=== PATIENT | male | born 1985 | race American Indian/Alaskan Native ===

== ENCOUNTER 2016-06-19 09:43 | Inpatient (IN) | payer OTHER ==
[2016-06-19 09:56] LABS: Basophils % (Auto) 0.6 % (0.0-1.8); Eosinophils % (Auto) 2.8 % (0.0-4.3); Hematocrit 42.4 % (35.5-45.6); Hemoglobin 14.2 gm/dl (11.8-15.2); Mean Corpuscular HGB Conc 33 % (32-34); Mean Corpuscular Hemoglobin 30 pg (28-32); Mean Corpuscular Volume 89 fl (84-94); Platelet Count 201 K/mm3 (140-440); Red Blood Count 4.77 M/mm3 (3.65-5.03); Red Cell Distribution Width 14.3 % (13.2-15.2); White Blood Count 7.8 K/mm3 (4.5-11.0)
--- NOTE | 2016-06-19 10:00 | Cat Scan Report ---
CT HEAD WITHOUT CONTRAST: HISTORY: CVA. Serial contiguous axial images were obtained through the cranium. Intravenous contrast material was not administered. The ventricles are normal in size and appearance. There is no mass effect or midline shift. No areas of abnormally increased or decreased attenuation are seen. No mass lesion is seen. The mastoid air cells and visualized portions of the sinuses are normal. IMPRESSION: Cranial CT scan within normal limits. These findings were discussed with Dr. Morales in the emergency department at 0955 hours.
[2016-06-19] MEDS ORDERED: ACTIVASE ONE ×2 (10:03→17:23)
[2016-06-19 10:07] LABS: Anion Gap 20 mmol/L; Blood Urea Nitrogen 12 mg/dL (9-20); Calcium 8.7 mg/dL (8.4-10.2); Carbon Dioxide 22 mmol/L (22-30); Chloride 103.6 mmol/L (98-107); Glucose 120 mg/dL (75-100); INR 0.95 (0.87-1.13); Potassium 3.8 mmol/L (3.6-5.0); Sodium 142 mmol/L (137-145)
[2016-06-19] MEDS ORDERED: BABY ASPIRIN PO ONE (10:17)
[2016-06-19] MEDS ORDERED: NORMODYNE IV ONE (10:27)
[2016-06-19 10:28] LABS: Magnesium 2.1 mg/dL (1.7-2.3)
--- NOTE | 2016-06-19 10:29 | Admit Criteria Form ---
Admission Criteria Documentation: TRANSIENT ISCHEMIC ATTACK (TIA) Clinical Indications for Admission to Inpatient Care (Place 'X' for any and all applicable criteria): Admission is indicated for ANY ONE of the following(1)(2)(3)(4)(5): [ ]I. Immediate inpatient procedure is needed (eg, endarterectomy). [X ]II. Inpatient admission required rather than observation care (Also use Transient Ischemic Attack (TIA): Observation Care Criteria as appropriate) because of ANY ONE of the following: [ ]a) Focal neurologic signs or symptoms persist or recurring [ ]b) Cardiac arrhythmias of immediate concern [ ]c) Clinically significant cardiac disorder identified that requires inpatient care (eg, severe valvular disease, atrial myxoma, cardiomyopathy) [X ]d) Hypertension requiring inpatient treatment [ ]e) Parenteral anticoagulation required (eg, alternative forms of anticoagulation not appropriate or not feasible) as indicated by ALL of the following(13): [ ]i) Temporary subtherapeutic anticoagulation unacceptable because of high risk of short-term venous or arterial thromboembolism due to ANY ONE of the following(14)(15)(16): [ ]1) Atrial fibrillation suspected as etiology of TIA(17)(18)(19)(20)(21) [ ]2) Venous thromboembolism within past 12 months [ ]3) Underlying malignancy [ ]4) Patient with mechanical cardiac valve(22)( 23) [ ]5) Underlying hypercoagulable state (eg, protein C or protein S deficiency antithrombin deficiency, antiphospholipid antibodies) [ ]6) Patient at temporary high risk of thromboembolism (eg, status post orthopedic surgery) [ ]ii) Contraindications to outpatient use of "bridging" agent or alternative oral anticoagulant[B] as indicated by ALL of the following: [ ]1) Contraindication to outpatient use of low- molecular-weight heparin as "bridging" agent as indicated by ANY ONE of the following(15): [ ]A. Documented current or history of heparin-induced thrombocytopenia(24) [ ]B. Severe thrombocytopenia (eg, platelet count less than 50,000/mm3 (34v400/L) [ ]C. Documented allergy to heparin, low- molecular-weight heparin, or pork products [ ]D. Renal failure (creatinine clearance less than 30 mL/min/1.73m2 (0.50mL/sec/1.73m2) or on dialysis) [ ]E. Inability to manage self-injection ( eg, by patient, caregiver, or visiting nurse) [ ]2) Contraindication to outpatient use of fondaparinux as "bridging" agent as indicated by ANY ONE of the following(25)(26 )(27)(28): [ ]A. Severe thrombocytopenia (eg, platelet count less than 50,000/mm3 (50 x109/L)) [ ]B.Hypersensitivity to fondaparinux, related drugs, or product components [ ]C.Renal failure (creatinine clearance less than 30 mL/min/1.73m2 (0.50mL/sec/1.73m2) or on dialysis) [ ]D.Inability to manage self-injection ( eg, by patient, caregiver, or visiting nurse [ ]3. Oral direct thrombin inhibitor (eg, dabigatran) or oral coagulation factor Xa inhibitor (eg, rivaroxaban, apixaban) not appropriate as oral anticoagulation (eg, indication not appropriate) or contraindicated (eg, hypersensitivity, creatinine clearance less than 15 mL/min/1.73m2 ( 0.25 mL/sec/1.73m2) or on dialysis). [ ]f) Continuous IV infusion of anticoagulant, platelet inhibitor, vasoactive or antiarrhythmia(18)(19) [ ]g) Other condition, treatment, or monitoring requiring inpatient admission [ ]III. Contraindications and/or Inappropriate clinical situations for Observational Care in patients with Transient Ischemic Attack (TIA), when ANY ONE of the following is required: [ ]a) Patient with persistent or severe neurological deficit 24 [ ]b) Patient with acute CVA or other identified pathology should be admitted to inpatient for further care 25 [ ]IV. General contraindications and/or Inappropriate clinical situations for Observational Care in patients with Transient Ischemic Attack (TIA), when ANY ONE of the following is required: [ ]a) Prediction of prolongation of LOS based on ANY ONE of the following may be considered as a contraindication for observational care 2, 3, 4, 5, 6, 7, 8, 9, 10, 11 [ ]i) Age > 65 yrs. [ ]ii) Patient arriving by ambulance [ ]iii) Patient with high acuity [ ]iv) Patient requiring vital sign monitoring [ ]v) Patient on IV medication [ ]b) Systolic blood pressures 180mmHg 3,12 [ ]c) Patient with altered mental status including delirium and other alteration of consciousness, (3) [ ]d) Patient whose discharge disposition will be to a [facility]ci home or rehabilitation home should not be managed in Emergency Department Observation Unit. CMS rule requires 3 days hospital stay before such placement.3,13 [ ]e) Patient with failure to thrive due to broad array of etiologies 3,16,17 [ ]f) Inability to ambulate 3,14 Extended stay beyond goal length of stay may be needed for(4)(30)(32): [ ]a) Parenteral anticoagulation required [ ]b) Dangerous arrhythmia [ ]c) Cardiac valvular disorder, atrial myxoma, cardiomyopathy [ ]d) Uncontrolled severe hypertension [ ]e) Severe carotid stenosis [ ]f) Active comorbidities (eg, heart failure) [ ]g) Extracranial vertebrobasilar disease(29) [ ]h) Clinical evolution of TIA into cerebrovascular accident (stroke) The original [employer] content created by [employer] has been revised. The portions of thecontent which have been revised are identified through the use of italic text or in bold, and [facility] has neither reviewed nor approved the modified material. All other unmodified content is copyright [employer]. Please see references footnoted in the original [employer] edition 2016 Admission Criteria Met: Yes
--- NOTE | 2016-06-19 10:30 | Emergency Department Report ---
HPI - General Chief Complaint: Neuro Symptoms/Deficit Time Seen by Provider: 06/19/16 09:44 - HPI HPI: The patient is a 31-year-old male with a history of blood clots, presents for evaluation of strokelike symptoms. The patient states that approximately 30 minutes prior to arrival, at the running and working out at the gym, he developed sudden onset of severe and constant left lateralizing weakness and dizziness, exacerbated with attempted ambulation or position changes. The patient states that he also experienced transient confusion. The patient denies fever, head injury, headache, neck pain, neck stiffness, vision or hearing changes, smell or taste changes, paresthesias, facial drooping, slurred speech, seizure-like activity, urine or bowel incontinence or retention, or other focal neurological deficit. ED Past Medical Hx - Past Medical History Previous Medical History?: Yes Additional medical history: Blood clots 2011 - Surgical History Past Surgical History?: Yes Additional Surgical History: right wrist surgery - Social History Smoking Status: Current Every Day Smoker Substance Use Type: Alcohol - Medications Home Medications: Home Medications Medication Instructions Recorded Confirmed Last Taken Type No Known Home Medications [No 06/19/16 06/19/16 Unknown History Reported Home Medications] ED Review of Systems ROS: Stated complaint: POSS CVA Other details as noted in HPI Constitutional: denies: fever ENT: denies: throat or neck pain Respiratory: denies: cough, shortness of breath Cardiovascular: denies: chest pain Endocrine: denies unexplained weight loss or gain Gastrointestinal: denies: abdominal pain, nausea Genitourinary: denies: dysuria Musculoskeletal: denies: leg swelling Skin: denies: rash Neurological: reports weakness and dizziness denies: headache Hematological/Lymphatic: denies: easy bleeding or easy bruising Psych: denies sadness or hopelessness Physical Exam - Physical Exam Vital Signs: Vital Signs 06/19/16 06/19/16 06/19/16 09:58 10:07 10:11 Temperature 98.5 F Pulse Rate 70 69 Respiratory 8 L 12 12 Rate Blood Pressure 160/110 Blood Pressure 160/110 158/108 [Right] O2 Sat by Pulse 99 100 100 Oximetry Physical Exam: General: well-nourished, well-developed, no acute distress Head: Normocephalic, atraumatic Eyes: normal sclera, PERRL, EOM intact ENT: Mucous membranes are pink and moist Neck: trachea midline, neck supple, No neck stiffness, no cervical adenopathy Respiratory: Breath sounds equal bilaterally, no wheezing, rales, or rhonchi Cardio: S1 and S2 present, no murmurs, rubs, gallops, capillary refill is brisk Abdomen: Normoactive bowel sounds, soft abdomen, no rigidity, no guarding or rebound tenderness Chest WALL/Back: No tenderness to palpation of the chest wall, no CVA tenderness with percussion Musc: No pitting edema Skin: No rash Neuro: alert oriented x4, normal cognition, speech normal, no facial drooping, no uvula or tongue deviation on protrusion, no deficit with rotation of neck or shoulder shrug, no pronator drift bilaterally, left arm and leg ataxia with finger to nose and heel to terry testing present, no obvious gross sensation deficits, 2+ symmetric reflexes on DTR testing, Babinski downgoing Psych: Normal affect ED Course Vital Signs 06/19/16 06/19/16 06/19/16 09:58 10:07 10:11 Temperature 98.5 F Pulse Rate 70 69 Respiratory 8 L 12 12 Rate Blood Pressure 160/110 Blood Pressure 160/110 158/108 [Right] O2 Sat by Pulse 99 100 100 Oximetry ED Medical Decision Making - Lab Data Result diagrams: 06/19/16 09:40 06/19/16 09:40 - Medical Decision Making The patient was seen and examined by myself. The patient is placed on a cardiac monitor technician and continuous pulse ox. On initial evaluation, the patient was found to be in no distress. Evaluation orders were placed. CT scan of the Head Is Negative for Acute Intracranial Disease Process. The patient is given IV hydralazine for his elevated blood pressure. The Patient Has a NIHSS scale 3, and is not an appropriate candidate for TPA. Dr. Jones the telemetry neurologist evaluates the patient. He agrees and the patient does not warrant TPA administration. He recommends admission for workup of TIA. The patient given a tablet of aspirin. Lab results are unremarkable. The on-call hospitalist service was contacted. They agreed to admit the patient for further treatment and close monitoring. The ED admit order was placed. The patient was admitted in guarded condition. Critical care attestation.: If time is entered above; I have spent that time in minutes in the direct care of this critically ill patient, excluding procedure time. ED Disposition Clinical Impression: TIA (transient ischemic attack), Hypertensive emergency Disposition: OP ADMITTED IP TO THIS HOSP Is pt being admited?: Yes Does the pt Need Aspirin: Yes Condition: Stable Time of Disposition: 10:19
[2016-06-19] MEDS ORDERED: APRESOLINE IV ONE ×2 (11:00→15:28)
[2016-06-19] MEDS ORDERED: APRESOLINE ONE (11:05)
--- NOTE | 2016-06-19 11:25 | History and Physical Report ---
History of Present Illness Date of examination: 06/19/16 Date of admission: 06/19/16 Chief complaint: Left-sided weakness, and left facial weakness History of present illness: Patient is 31-year-old , presented with left-sided weakness while he was exercising at public Gym. He was brought to the emergency department. Paramedics reported left facial weakness. By the time he came to the emergency department and while he was there symptoms resolved. His blood pressure was found to be elevated. He denies any previous history of hypertension. Initial blood pressure 160/110. He was given Labetalol IV. He is diagnosed with TIA since his symptoms have resolved. He will be admitted for further management. Past History Past Medical History: DVT (right leg 4 yrs ago) Past Surgical History: Other (wrist surgery) Social history: single, smoking (smokes daily cigar/black and mild), alcohol abuse (occasionally), full code Family history: hypertension Medications and Allergies Allergies Allergy/AdvReac Type Severity Reaction Status Date / Time No Known Allergies Allergy Verified 06/19/16 10:21 Home Medications Medication Instructions Recorded Confirmed Last Taken Type No Known Home Medications [No 06/19/16 06/19/16 Unknown History Reported Home Medications] Review of Systems All systems: negative (no chest pain, no shortness of breath, no headache, no abdominal pain, no urinary symptoms. All other systems reviewed and are negative) Exam - Constitutional Vitals: Temp Pulse Resp BP Pulse Ox 98.5 F 69 12 158/108 100 06/19/16 09:58 06/19/16 10:07 06/19/16 10:11 06/19/16 10:07 06/19/16 10:11 General appearance: Present: no acute distress, well-nourished - EENT Eyes: Present: PERRL, EOM intact ENT: hearing intact, clear oral mucosa - Neck Neck: Present: supple, normal ROM - Respiratory Respiratory effort: normal Respiratory: bilateral: CTA, negative: diminished, rales, rhonchi, wheezing - Cardiovascular Rhythm: regular Heart Sounds: Present: S1 & S2 (S1 and S2 regular, no murmurs rubs or gallops) - Extremities Extremities: no ischemia, No edema, normal temperature, normal color - Abdominal General gastrointestinal: Present: soft, non-tender, non-distended, normal bowel sounds - Integumentary Integumentary: Present: clear, warm, dry - Musculoskeletal Musculoskeletal: strength equal bilaterally - Psychiatric Psychiatric: appropriate mood/affect, intact judgment & insight - Neurologic Neurologic: moves all extremities, other (awake alert oriented 3, most speech, no facial weakness, muscle power 5/5 both upper and lower extremities, no focal neurologic signs) Results - Labs CBC & Chem 7: 06/19/16 09:40 06/19/16 09:40 Labs: Abnormal lab results 06/19/16 06/19/16 06/19/16 Range/Units 09:40 09:40 09:40 Lymph % (Auto) 44.2 H (13.4-35.0) % Prentiss % (Auto) 7.9 H (0.0-7.3) % APTT 24.0 L (24.2-36.6) Sec. Glucose 120 H (75-100) mg/dL Assessment and Plan Transient ischemic attack with transient left sided weakness and transient left facial weakness. He had transient neurologic symptoms suggestive of TIA. Admit to telemetry. Obtain MRI, carotid Doppler, echocardiogram. Aspirin daily. Neurocheck Hypertensive urgency. He denies any history of hypertension. Will start Norvasc 5 mg by mouth daily. Monitor BP. he will need outpatient follow-up for this. DVT prophylaxis - Lovenox Full CODE STATUS
[2016-06-19] MEDS ORDERED: MILK OF MAGNESIA PO PRN (11:26)
[2016-06-19] MEDS ORDERED: SODIUM CHLORIDE FLUSH SYRINGE 10 ML IV PRN (11:26)
[2016-06-19] MEDS ORDERED: DULCOLAX PR PRN (11:26)
[2016-06-19] MEDS ORDERED: ZOFRAN IV PRN (11:26)
[2016-06-19] MEDS ORDERED: TYLENOL PO PRN (11:26)
[2016-06-19] MEDS ORDERED: NORCO 5/325 PO PRN (11:26)
[2016-06-19 13:44] LABS: Urine Drugs of Abuse Note Disclamer
[2016-06-19] MEDS: NORVASC PO SCH (15:04)
--- NOTE | 2016-06-19 16:57 | Event Note ---
Date: 06/19/16 Called to by nurse due to recurrent left sided weakness aprox 4:30pm patient has had left-sided facial droop, homonomysis hemianopsia or, left arm weakness, and left leg weakness. + headache reported. These are similar to the symptoms that patient presented with earlier that resolved upon return from CT. Patient' s blood pressure is 164/126. After receiving hydralazine pressure decreased to 154/95 and patient became asymptomatic again. I called Dr. Esposito who states that Dr. Benítez is managing the patient. Dr. Benítez notified and will come to the ER to evaluate patient. Also called the acute stroke care team reassessment. Dr Jones is recontacted and evaluated pt earlier with Dr. Morales. Recommended stat CT angio head and neck and he will reassess pt for TPA. 5:24 upon call back rec TPA if no bleed on ct angio 5:59, Neurologist reviewed ct and stated no hemorrhage and rec TPA while awaiting CTA angio result, if positive CT angio pt may be a candidate for transfer to [place]. CT angio head and neck: normal. pt receiving tpa, Dr. Jones Informed. Pt has a family hx of sickle cell, dvt, pe suggests workup for coagulopathy
[2016-06-19] MEDS ORDERED: NACL ONE (17:21)
[2016-06-19] MEDS ORDERED: ACTIVASE IV ONE ×2 (17:57)
[2016-06-19] MEDS ORDERED: NACL 0.9% IV ONE (17:57)
--- NOTE | 2016-06-19 19:08 | Cat Scan Report ---
FINAL REPORT EXAM: CT ANGIO HEAD HISTORY: left sided weakness TECHNIQUE: CT angiogram head with multiplanar reconstructions and 3D reconstructions PRIORS: None. FINDINGS: The cavernous internal carotid arteries demonstrate normal course and caliber. There is normal appearance of the YANELI and MCA distributions bilaterally. No evidence for major vascular occlusion. No large aneurysms are identified. The basilar arteries and MAINTENANCE EQUIPMENT OPERATOR circulations are unremarkable. IMPRESSION: No evidence for major vascular occlusion and stenosis. Negative study.
--- NOTE | 2016-06-19 19:17 | Cat Scan Report ---
FINAL REPORT EXAM: CT ANGIO NECK HISTORY: left sided weakness TECHNIQUE: CT neck CT angiogram with multiplanar and maximum intensity projection reconstructions PRIORS: None. FINDINGS: Origin of the great vessels are unremarkable. The common carotid arteries are normal in course and caliber. External carotid arteries are patent. The internal carotid arteries demonstrate normal caliber no evidence for stenosis or occlusion. Both vertebral arteries are identified. There is no evidence for stenosis or dissection. IMPRESSION: Normal CTA neck
[2016-06-19] MEDS ORDERED: LOVENOX SUB-Q SCH (22:00)
[2016-06-20] MEDS ORDERED: ASPIRIN PO SCH (10:00)
[2016-06-20] MEDS: NORVASC PO SCH (10:15)
--- NOTE | 2016-06-20 12:34 | Consultation ---
History of Present Illness Consult date: 06/20/16 Requesting physician: CIARA KING Reason for consult: other (CVA s/p tpA) History of present illness: PULMONARY CONSULT NOTE (Full dictation # [id number]) Please see dictated notes for full details Past History Past Medical History: DVT (right leg 4 yrs ago) Past Surgical History: Other (wrist surgery) Social history: single, smoking (smokes daily cigar/black and mild), alcohol abuse (occasionally), full code Family history: hypertension Medications and Allergies Allergies Allergy/AdvReac Type Severity Reaction Status Date / Time No Known Allergies Allergy Verified 06/19/16 10:21 Home Medications Medication Instructions Recorded Confirmed Last Taken Type No Known Home Medications [No 06/19/16 06/19/16 Unknown History Reported Home Medications] Active Meds: Active Medications Acetaminophen (Tylenol) 650 mg PO Q4H PRN PRN Reason: Pain, Mild (1-3) Acetaminophen/Hydrocodone Bitart ([place] 5/325) 1 each PO Q6H PRN PRN Reason: Pain, Moderate (4-6) Last Admin: 06/19/16 21:08 Dose: 1 each Amlodipine Besylate (Norvasc) 5 mg PO QDAY KAI Last Admin: 06/20/16 10:15 Dose: 5 mg Bisacodyl (Dulcolax) 10 mg [place] QDAY PRN PRN Reason: Constipation Magnesium Hydroxide (Milk Of Magnesia) 30 ml PO Q4H PRN PRN Reason: Constipation Ondansetron HCl (Zofran) 4 mg IV Q8H PRN PRN Reason: nausea or vomiting Sodium Chloride (Sodium Chloride Flush Syringe 10 Ml) 10 ml IV PRN PRN PRN Reason: LINE FLUSH Physical Examination Vital signs: Vital Signs Pulse Pulse Ox 77 99 06/19/16 09:54 06/19/16 09:54 Results - Laboratory Findings CBC and BMP: 06/19/16 09:40 06/19/16 09:40 PT/INR, D-dimer PT 12.6 Sec. (12.2-14.9) 06/19/16 09:40 INR 0.95 (0.87-1.13) 06/19/16 09:40 Abnormal lab findings: Abnormal Labs 06/20/16 04:22 HDL Cholesterol 66 H
--- NOTE | 2016-06-20 13:03 | Echocardiography Report ---
Transthoracic Echocardiogram Indication: Stroke BP: 136/88 Findings Left Ventricle: The left ventricular chamber size is normal. Mild to moderate concentric left ventricular hypertrophy is observed. Global left ventricular wall motion and contractility are within normal limits. Global left ventricular systolic function is normal. The estimated ejection fraction is 60-65%. Normal left ventricular diastolic filling is observed. Left Atrium: The left atrium is normal in size with no visual thrombus identified. Right Ventricle: The right ventricular cavity size is normal. The right ventricular global systolic function is normal. Right Atrium: The right atrium appears normal. The interatrial septum appears normal. Aortic Valve: The aortic valve structure is normal. There is trace of aortic regurgitation. There is no evidence of aortic stenosis. The aortic valve area, by VTI's, is calculated at 2.73 cm2. Mitral Valve: The mitral valve leaflets appear normal. There is trace of mitral regurgitation. There is no evidence of mitral stenosis. Tricuspid Valve: The tricuspid valve leaflets are normal. There is trace tricuspid regurgitation. No pulmonary hypertension is noted. There is no tricuspid stenosis. Pulmonic Valve: The pulmonic valve appears normal. There is mild pulmonic regurgitation. There is no pulmonic stenosis. Pericardium: There is no pericardial effusion. Aorta: There is no dilatation of the ascending aorta. There is no dilatation of the aortic arch. There is no dilatation of the descending thoracic aorta. There is no dilatation of the aortic root. Venous: The inferior vena cava appears normal in size. Contrast: Intravenous agitated saline contrast was used to assess intracardiac shunting. Measurements Chambers MM Name Value Normal Range Ao root diameter (MM) 3.6 cm (2 - 3.7) LA dimension (AP) MM 3.6 cm (1.9 - 4) LA:Ao ratio (MM) 1 ratio - AV cusp separation (MM) 1.9 cm (1.5 - 2.6) Chambers 2D Name Value Normal Range RVIDd (AP) 2D 3.06 cm (0.9 - 2.6) IVSd (2D) 1.7 cm (0.6 - 1.1) LVPWd (2D) 1.74 cm (0.6 - 1.1) IVS:LVPW ratio (2D) 0.98 ratio - LVIDd (2D) 4.02 cm (3.7 - 5.6) LVIDs (2D) 2.45 cm (2 - 3.8) LV FS (Teichholz) (2D) 39.1 % - LV FS (cube) (2D) 39.1 % - EF Teichholz (2D) 70.1 % - LA dimension (AP) 2D 3.4 cm (1.9 - 4) Volumes/Mass Name Value Normal Range LA ESV SP 4CH (MOD) 36 ml - LA ESV SP 2CH (MOD) 48 ml - LA ESV BP (MOD) 46 ml - LA ESV BP (MOD) index 22.1 ml/m2 - LV EDV SP 4CH (MOD) 63 ml - LV ESV SP 4CH (MOD) 23 ml - EF SP 4CH (MOD) 63 % - LV EDV SP 2CH (MOD) 63 ml - LV ESV SP 2CH (MOD) 17 ml - EF SP 2CH (MOD) 73 % - LV EDV BP 67 ml - LV ESV BP 21 ml - BP EF (MOD) 69 % - Diastolic/Systolic Function Name Value Normal Range MV E-wave Vmax 0.76 m/sec - MV deceleration time 250 msec - MV A-wave Vmax 0.69 m/sec - MV E:A ratio 1.1 ratio - LV septal e' Vmax 0.13 m/sec - LV lateral e' Vmax 0.1 m/sec - LV E:e' septal ratio 5.7 ratio - LV E:e' lateral ratio 7.3 ratio - Aortic Valve Name Value Normal Range AV VTI 35.8 cm - LVOT diameter 2.2 cm - LVOT VTI 25.7 cm - LVOT mean gradient 4 mmHg - SV LVOT 98 ml - EFREN (continuity VTI) 2.73 cm2 - Mitral Valve Name Value Normal Range MV PHT 48 msec - MVA (PHT) 4.58 cm2 - Tricuspid Valve Name Value Normal Range TR Vmax 2.06 m/sec - TR peak gradient 17 mmHg - Pulmonic Valve/Qp:Qs Name Value Normal Range PV Vmax 1.11 m/sec - PV peak gradient 5 mmHg - CT end-diastolic Vmax 0.92 m/sec - PV acceleration time 130 msec -
--- NOTE | 2016-06-20 14:44 | Progress Note ---
Assessment and Plan Assessment and plan: --Acute CVA ischemic, status post TPA Closely monitor, aspirin and DVT prophylaxis after 24 hours soft TPA Physical therapy occupational therapy and speech therapy And rehabilitation per protocol Follow MRA MRI, echocardiogram CT angiogram of his head and carotid Dopplers reviewed Normal study --Accelerated Hypertension at the time of admission Now well-controlled, continue current antihypertensives And when necessary hydralazine --Dyslipidemia; We'll add lipid-lowering medications and low cholesterol diet --Ongoing tobacco use Smoking cessation counseling done, strongly advised to quit tobacco use, advised us and consequences Advised nicotine patch, I spent 10 minutes counseling the patient smoking cessation --DVT prophylaxis; SCDs, Lovenox after 24 hours post TPA per protocol --Physical therapy, occupational therapy, speech therapy Acute versus subacute rehabilitation Will closely monitor the patient, patient can be transferred out of ICU after 24 hours of TPA Plan of care discussed with the patient his nurse as well as the case management Rectal care time 31 minutes The high probability of a clinically significant, sudden or life threatening deterioration of the [neurology] system(s) required my full and direct attention , intervention and personal management. The aggregate critical care time was [31 ] minutes. This time is in addition to time spent performing reported procedures but includes the following: [x] Data Review and interpretation [x] Patient assessment and monitoring of vital signs [x] Documentation [x] Medication orders and management History Interval history: Since seen and evaluated medical records reviewed Admitted last night with acute CVA status post TPA Admitted to ICU for close observation Patient denies any headache or dizziness, mild left-sided weakness Tolerated breakfast Patient is alert awake oriented 3 not in acute distress Vital signs reviewed Hospitalist Physical - Constitutional Vitals: Temp Pulse Resp BP Pulse Ox 98.6 F 81 17 147/109 96 06/20/16 12:00 06/20/16 13:46 06/20/16 13:46 06/20/16 13:46 06/20/16 13:46 General appearance: Present: no acute distress, well-nourished - EENT Eyes: Present: PERRL, EOM intact - Neck Neck: Present: supple, normal ROM - Respiratory Respiratory effort: normal Respiratory: bilateral: diminished, rales - Cardiovascular Rhythm: regular Heart Sounds: Present: S1 & S2 - Extremities Extremities: no ischemia, pulses intact, pulses symmetrical Peripheral Pulses: within normal limits - Abdominal General gastrointestinal: soft, non-tender, non-distended, normal bowel sounds - Integumentary Integumentary: Present: clear, warm - Psychiatric Psychiatric: appropriate mood/affect, cooperative - Neurologic Neurologic: CNII-XII intact, moves all extremities, other (mild facial weakness) Results - Labs CBC & Chem 7: 06/19/16 09:40 06/19/16 09:40 Labs: Laboratory Last Values WBC 7.8 K/mm3 (4.5-11.0) 06/19/16 09:40 RBC 4.77 M/mm3 (3.65-5.03) 06/19/16 09:40 Hgb 14.2 gm/dl (11.8-15.2) 06/19/16 09:40 Hct 42.4 % (35.5-45.6) 06/19/16 09:40 MCV 89 fl (84-94) 06/19/16 09:40 MCH 30 pg (28-32) 06/19/16 09:40 MCHC 33 % (32-34) 06/19/16 09:40 RDW 14.3 % (13.2-15.2) 06/19/16 09:40 Plt Count 201 K/mm3 (140-440) 06/19/16 09:40 Lymph % (Auto) 44.2 % (13.4-35.0) H 06/19/16 09:40 [place] % (Auto) 7.9 % (0.0-7.3) H 06/19/16 09:40 Eos % (Auto) 2.8 % (0.0-4.3) 06/19/16 09:40 Baso % (Auto) 0.6 % (0.0-1.8) 06/19/16 09:40 Lymph # 3.5 K/mm3 (1.2-5.4) 06/19/16 09:40 [place] # 0.6 K/mm3 (0.0-0.8) 06/19/16 09:40 Eos # 0.2 K/mm3 (0.0-0.4) 06/19/16 09:40 Baso # 0.0 K/mm3 (0.0-0.1) 06/19/16 09:40 Seg Neutrophils % 44.5 % (40.0-70.0) 06/19/16 09:40 Seg Neutrophils # 3.5 K/mm3 (1.8-7.7) 06/19/16 09:40 PT 12.6 Sec. (12.2-14.9) 06/19/16 09:40 INR 0.95 (0.87-1.13) 06/19/16 09:40 APTT 24.0 Sec. (24.2-36.6) L 06/19/16 09:40 Thrombin Time 15.9 Sec. (15.1-19.6) 06/19/16 09:40 Sodium 142 mmol/L (137-145) 06/19/16 09:40 Potassium 3.8 mmol/L (3.6-5.0) 06/19/16 09:40 Chloride 103.6 mmol/L (98-107) 06/19/16 09:40 Carbon Dioxide 22 mmol/L (22-30) 06/19/16 09:40 Anion Gap 20 mmol/L 06/19/16 09:40 BUN 12 mg/dL (9-20) 06/19/16 09:40 Creatinine 1.1 mg/dL (0.8-1.5) 06/19/16 09:40 Estimated GFR > 60 ml/min 06/19/16 09:40 BUN/Creatinine Ratio 10.90 % 06/19/16 09:40 Glucose 120 mg/dL (75-100) H 06/19/16 09:40 POC Glucose 95 (70-105) 06/19/16 10:01 Calcium 8.7 mg/dL (8.4-10.2) 06/19/16 09:40 Magnesium 2.1 mg/dL (1.7-2.3) 06/19/16 09:40 Troponin T < 0.010 ng/mL (0.00-0.029) 06/19/16 09:40 NT-Pro-B Natriuret Pep 23.08 pg/mL (0-450) 06/19/16 09:40 Triglycerides 44 mg/dL (2-149) 06/20/16 04:22 Cholesterol 186 mg/dL (50-199) 06/20/16 04:22 LDL Cholesterol Direct 112 mg/dL (50-130) 06/20/16 04:22 HDL Cholesterol 66 mg/dL (40-59) H 06/20/16 04:22 Cholesterol/HDL Ratio 2.81 % 06/20/16 04:22 Urine Opiates Screen Presumptive negative 06/19/16 13:18 Urine Methadone Screen Presumptive negative 06/19/16 13:18 Ur Barbiturates Screen Presumptive negative 06/19/16 13:18 Ur Phencyclidine Scrn Presumptive negative 06/19/16 13:18 Ur Amphetamines Screen Presumptive negative 06/19/16 13:18 U Benzodiazepines Scrn Presumptive negative 06/19/16 13:18 Urine Cocaine Screen Presumptive negative 06/19/16 13:18 U Marijuana (THC) Screen Presumptive negative 06/19/16 13:18 Drugs of Abuse Note Disclamer 06/19/16 13:18 Plasma/Serum Alcohol < 0.01 gm% (0-0.07) 06/19/16 09:40
[2016-06-20] MEDS: PEPCID PO SCH (16:42)
[2016-06-20] MEDS: ECOTRIN PO SCH (21:59)
--- NOTE | 2016-06-21 03:07 | Consultation ---
CONSULTING PHYSICIAN: Max Benítez MD REASON FOR CONSULTATION: ICU admission, acute CVA, status post TPA. CHIEF COMPLAINT AND HISTORY OF PRESENT ILLNESS: The patient is a 31-year-old -[place] male with a strong personal and family history of venous thromboembolic phenomenon, who came to evaluation of stroke-like symptoms. According to him, he was in the gym. He was working out, when all of a sudden he felt weak in both legs. He decided to continue with the workout and blamed it on the weight he was lifting; however, when he went to the next day, he states he was told that he looked funny, apparently had a facial droop, did not look well. Emergency medical services were called. He was brought into the Emergency Room. He also was a little bit incoherent at that time. He denies fevers, chills. Denied any trauma, any neck stiffness, any alteration in his cranial function. In the emergency room, he was evaluated for administration of TPA. Neurologic evaluation was unremarkable. He met criteria, he received TPA. He also had another episode of left upper extremity this time weakness while in the Emergency Room. Post-TPA, he is transferred into the Intensive Care Unit for further evaluation where I had seen him, mother at bedside. Mother says his mental status was still not back to baseline. He was feeling better and not really animated. He was really much of a flat affect. Now with regards to tobacco use/abuse history, he has about a [id number] tobacco smoking history. He does smoke. He does also drink alcohol. That really is as much of the history of presentation as I have. PAST MEDICAL HISTORY: Venous thromboembolic disease and DVT in 2011. PAST SURGICAL HISTORY: He has had right wrist surgery. MEDICATIONS: He was on at the time I stopped by to see him, according to the medication administration record included the following: He was on Tylenol 650 mg p.o. q.4h. p.r.n., [place] 5/325 mg p.o. q. 6h. p.r.n., Norvasc 5 mg p.o. daily, p.r.n. Dulcolax, p.r.n. milk of magnesia, Zofran 4 mg IV q. 8h. p.r.n. ALLERGIES: No known drug allergies. DIET: Well-built gentleman. Denies acute weight loss or gain, preceding few weeks to months. FAMILY AND SOCIAL HISTORY: Lives in the community about a [id number] tobacco smoking history. Drinks alcohol occasionally. Denies illicit drug use or abuse. There is a strong family history according to the mother of a venous thromboembolic phenomenon. She has had blood clots. He has had blood clots. They have a brother who in his 30s of a blood clot and dad in his 40s of what was related to a cerebrovascular accident that was believed related to blood clots. They are currently undergoing a workup for that genetic variant. REVIEW OF SYSTEMS: No overt loss of consciousness. He did have the focal weakness. No new onset seizures. Denies gross hematochezia or melena. No gross hematuria or dysuria. No hematemesis. No hemoptysis. No palpitations. Complete review of systems obtained. Pertinent positives and/or negatives as in body of history above, otherwise noncontributory. PHYSICAL EXAMINATION: VITAL SIGNS: At presentation, he was afebrile, temperature 98.5, pulse was 77, respiratory rate was 8, blood pressure 160/110, oxygen sats 99%, inspired oxygen concentration was not recorded. Diastolic blood pressures have remained over 100 most of this admission. HEENT: Pupils are equal, round, about 3-4 mm, reactive to light. The tongue is deviating to the left and protrusion. Grossly, no palpable lymph nodes in the supraclavicular or submandibular lymph node chains. No gross jugular venous distention. LUNGS: Auscultation of both lung mcmanus unremarkable. Lungs are clear bilaterally. HEART: Heart sounds 1 and 2 are heard at the time of my evaluation, regular rate and rhythm. ABDOMEN: Soft. Bowel sounds are positive. Did not appear tender. EXTREMITIES: Without overt digital clubbing, cyanosis, or pedal edema. NEUROLOGIC: He had some residual left upper extremity weakness, no less than 4/5 on my evaluation. LABORATORY DATA: From my review, white cell count 7800, hemoglobin 14.3, hematocrit 42.4, platelets 201. INR 0.95. Serum sodium 142, potassium 3.8, chloride 104, bicarbonate 22, BUN 12, creatinine 1.1, glucose 120. BNP within normal limits. LDL cholesterol 112, HDL is 66. Urine drug screen was negative. Alcohol within normal limits. I do not have any chest x-rays for evaluation. He did have some CT of the head, was read as normal and the of head and neck were normal. A 2D echocardiogram was done that shows normal left ventricular ejection fraction and normal diastolic function, no pulmonary hypertension. ASSESSMENT AND PLAN: We have a young gentleman, status post TIA or in my opinion, possibly a hypertensive urgency, who is doing well. He has received a TPA. He has had no major side effects of the treatment. He is being observed in the Intensive Care Unit and once that is done, he will be transferred to medical floor. I have advised tobacco cessation. Neurology evaluation is ongoing. I will put him on GI prophylaxis. He is on mechanical DVT prophylaxis. Flu and pneumonia vaccination will be per protocol. Thank you very much for the consult, Dr. Benítez and Dr. Rivero. We will follow along and make further recommendations as picture progresses/becomes clearer. Secondary prevention modalities are being put in place and he is already undergoing a pro-coagulability workup. JOB# [id number] DELIA/VICTORINO
[2016-06-21 06:47] LABS: Basophils % (Auto) 0.9 % (0.0-1.8); Eosinophils % (Auto) 1.8 % (0.0-4.3); Hematocrit 43.3 % (35.5-45.6); Hemoglobin 14.6 gm/dl (11.8-15.2); Mean Corpuscular HGB Conc 34 % (32-34); Mean Corpuscular Hemoglobin 30 pg (28-32); Mean Corpuscular Volume 88 fl (84-94); Platelet Count 192 K/mm3 (140-440); Red Blood Count 4.92 M/mm3 (3.65-5.03); Red Cell Distribution Width 14.5 % (13.2-15.2); White Blood Count 8.9 K/mm3 (4.5-11.0)
[2016-06-21 06:57] LABS: Alanine Aminotransferase 9 units/L (7-56); Albumin 3.9 g/dL (3.9-5); Albumin/Globulin Ratio 1.1 %; Alkaline Phosphatase 46 units/L (35-129); Anion Gap 17 mmol/L; BUN/Creatinine Ratio 9.09; Bilirubin,Total 0.6 mg/dL (0.1-1.2); Blood Urea Nitrogen 10 mg/dL (9-20); Calcium 8.8 mg/dL (8.4-10.2); Carbon Dioxide 22 mmol/L (22-30); Glucose 85 mg/dL (75-100); Potassium 3.6 mmol/L (3.6-5.0); Sodium 137 mmol/L (137-145); Total Protein 7.3 g/dL (6.3-8.2)
[2016-06-21 07:00] LABS: Bilirubin,Direct < 0.2 mg/dL (0-0.2); Bilirubin,Indirect 0.4 mg/dL
[2016-06-21] MEDS ORDERED: APRESOLINE IV ONE (11:00)
--- NOTE | 2016-06-21 11:28 | Magnetic Resonance Report ---
MR BRAIN WITHOUT CONTRAST History: CVA TECHNIQUE: Multisequence, multiplanar MRI without contrast. FINDINGS: Correlation is made with the CT head dated 06/19/16. On MRI, a large area of diffusion restriction is now evident throughout the right MCA distribution measuring up to 10.6 x 3.4 cm on axial diffusion image 21. There is moderate edema on the T2-weighted sequences in this same area but no evidence for significant mass effect, hemorrhage or mass. Ventricular size is within normal limits. The remaining brain parenchyma demonstrate normal signal intensity. The posterior fossa and contents are within normal limits. The sinuses and mastoid air cells are clear. IMPRESSION: Large area of subacute ischemia in the right MCA distribution as outlined above. No evidence for hemorrhage.
--- NOTE | 2016-06-21 11:28 | Magnetic Resonance Report ---
MRA HEAD WITHOUT CONTRAST HISTORY: CVA, stroke. TECHNIQUE: Three-dimensional [id number] imaging with rotational MIP images. FINDINGS: Correlation is made with the CTA head and neck performed 06/19/16. Noncontrast MRA demonstrates a focal occlusion or near occlusion within one of the branches of the right MCA within the right M2 segment. This is best demonstrated on axial source image 64 and is also demonstrated on the rotational MIP images. The right YANELI, left YANELI and left MCA are patent without evidence of stenosis or occlusion. There are moderate sized bilateral posterior communicating arteries. The vertebrobasilar system and posterior cerebral arteries are patent with no significant stenosis. The vertebral arteries are codominant. IMPRESSION: A focal occlusion or near occluding thrombus in the right M2 segment as outlined above.
[2016-06-21] MEDS: ECOTRIN PO SCH (11:57)
[2016-06-21] MEDS: PEPCID PO SCH (11:58)
[2016-06-21] MEDS: NORVASC PO SCH (11:58)
--- NOTE | 2016-06-21 14:19 | Progress Note ---
Assessment and Plan - Patient Problems (1) Hypertensive emergency Current Visit: Yes Status: Acute Plan to address problem: - better controlled - titrate oral meds (2) TIA (transient ischemic attack) Current Visit: Yes Status: Acute Plan to address problem: - MRI reports subacute infarct and this may be more than a TIA - will follow neurology recs - secondary prevention strategies initiated Subjective Date of service: 06/21/16 Principal diagnosis: CVA; Hypertensive Urgency Interval history: seen and examined at bedside; 24hour events reviewed; nursing and respiratory care staff consulted; no adverse overnight events reported to me; looks and feels better; more alert; denies acute chest pains or increased SOB; states that he did not carry a diagnosis of HTN prior Objective Vital Signs - 12hr 06/21/16 06/21/16 06/21/16 05:56 08:05 10:41 Temperature 98.6 F 98.8 F Pulse Rate [ 71 82 Left] Respiratory 20 20 Rate Blood Pressure 136/91 175/87 [Right Arm] O2 Sat by Pulse 97 97 98 Oximetry 06/21/16 11:55 Temperature 98.3 F Pulse Rate [ 76 Left] Respiratory 20 Rate Blood Pressure 136/85 [Right Arm] O2 Sat by Pulse 97 Oximetry Constitutional: no acute distress Eyes: non-icteric ENT: oropharynx moist Neck: supple, no lymphadenopathy Effort: normal Ascultation: Bilateral: clear Cardiovascular: regular rate and rhythm Gastrointestinal: normoactive bowel sounds, soft, non-tender, non-distended Integumentary: normal Extremities: no cyanosis, no edema, pulses normal, no ischemia or petechiae Neurologic: normal mental status, non-focal exam (grossly), pupils equal and round, motor strength normal and, other (? slight left facial droop) Psychiatric: mood appropriate, affect normal CBC and BMP: 06/21/16 06:06 06/21/16 06:06 ABG, PT/INR, D-dimer: PT/INR, D-dimer PT 12.6 Sec. (12.2-14.9) 06/19/16 09:40 INR 0.95 (0.87-1.13) 06/19/16 09:40 Abnormal lab findings: Abnormal Labs 06/20/16 06/21/16 04:22 06:06 Lymph % (Auto) 37.8 H [place] % (Auto) 9.6 H [place] # 0.9 H HDL Cholesterol 66 H
--- NOTE | 2016-06-21 19:25 | Progress Note ---
Assessment and Plan Assessment and plan: --Acute ischemic CVA MRI; large area of subacute ischemia in the right MCA distribution no evidence of hemorrhage MRA; focal occlusion or near occluding thrombus in the right M2 segment as outlined --Acute CVA ischemic, status post TPA Closely monitor, aspirin and DVT prophylaxis after 24 hours soft TPA Physical therapy occupational therapy and speech therapy And rehabilitation per protocol --Family history of hypercoagulable state with CVAs, DVTs Check hypercoagulable profile, consult neurology, hematology possible long-term anticoagulation --echocardiogram CT angiogram of his head and carotid Dopplers reviewed Normal study --Accelerated Hypertension at the time of admission Now well-controlled, continue current antihypertensives And when necessary hydralazine --Dyslipidemia; We'll add lipid-lowering medications and low cholesterol diet --Ongoing tobacco use Smoking cessation counseling done, strongly advised to quit tobacco use, advised us and consequences Advised nicotine patch, I spent 10 minutes counseling the patient smoking cessation --DVT prophylaxis; SCDs, Lovenox after 24 hours post TPA per protocol --Physical therapy, occupational therapy, speech therapy Acute versus subacute rehabilitation if needed History Interval history: Patient and evaluated medical records reviewed Complains of mild weakness Alert awake oriented 3 MRI/MRA findings reviewed Patient also gives family history of DVT/and CVAs Patient had lower extremity DVT 3 years ago We will order hypercoagulable workup Consult neurology and hematology Hospitalist Physical - Constitutional Vitals: Temp Pulse Resp BP Pulse Ox 98.6 F 76 20 126/84 95 06/21/16 17:35 06/21/16 17:35 06/21/16 17:35 06/21/16 17:35 06/21/16 17:35 General appearance: Present: no acute distress, well-nourished - EENT Eyes: Present: PERRL, EOM intact - Neck Neck: Present: supple, normal ROM - Respiratory Respiratory effort: normal Respiratory: negative: rales, rhonchi, wheezing - Cardiovascular Rhythm: regular Heart Sounds: Present: S1 & S2 - Extremities Extremities: no ischemia, pulses intact, pulses symmetrical Peripheral Pulses: within normal limits - Abdominal General gastrointestinal: soft, non-tender, non-distended, normal bowel sounds - Integumentary Integumentary: Present: clear, warm - Psychiatric Psychiatric: appropriate mood/affect, cooperative - Neurologic Neurologic: other Results - Labs CBC & Chem 7: 06/21/16 06:06 06/21/16 06:06 Labs: Laboratory Last Values WBC 8.9 K/mm3 (4.5-11.0) 06/21/16 06:06 RBC 4.92 M/mm3 (3.65-5.03) 06/21/16 06:06 Hgb 14.6 gm/dl (11.8-15.2) 06/21/16 06:06 Hct 43.3 % (35.5-45.6) 06/21/16 06:06 MCV 88 fl (84-94) 06/21/16 06:06 MCH 30 pg (28-32) 06/21/16 06:06 MCHC 34 % (32-34) 06/21/16 06:06 RDW 14.5 % (13.2-15.2) 06/21/16 06:06 Plt Count 192 K/mm3 (140-440) 06/21/16 06:06 Lymph % (Auto) 37.8 % (13.4-35.0) H 06/21/16 06:06 [place] % (Auto) 9.6 % (0.0-7.3) H 06/21/16 06:06 Eos % (Auto) 1.8 % (0.0-4.3) 06/21/16 06:06 Baso % (Auto) 0.9 % (0.0-1.8) 06/21/16 06:06 Lymph # 3.4 K/mm3 (1.2-5.4) 06/21/16 06:06 [place] # 0.9 K/mm3 (0.0-0.8) H 06/21/16 06:06 Eos # 0.2 K/mm3 (0.0-0.4) 06/21/16 06:06 Baso # 0.1 K/mm3 (0.0-0.1) 06/21/16 06:06 Seg Neutrophils % 49.9 % (40.0-70.0) 06/21/16 06:06 Seg Neutrophils # 4.5 K/mm3 (1.8-7.7) 06/21/16 06:06 PT 12.6 Sec. (12.2-14.9) 06/19/16 09:40 INR 0.95 (0.87-1.13) 06/19/16 09:40 APTT 24.0 Sec. (24.2-36.6) L 06/19/16 09:40 Thrombin Time 15.9 Sec. (15.1-19.6) 06/19/16 09:40 Sodium 137 mmol/L (137-145) 06/21/16 06:06 Potassium 3.8 mmol/L (3.6-5.0) 06/19/16 09:40 Chloride 103.6 mmol/L (98-107) 06/19/16 09:40 Carbon Dioxide 22 mmol/L (22-30) 06/21/16 06:06 Anion Gap 20 mmol/L 06/19/16 09:40 BUN 10 mg/dL (9-20) 06/21/16 06:06 Creatinine 1.1 mg/dL (0.8-1.5) 06/21/16 06:06 Estimated GFR > 60 ml/min 06/21/16 06:06 BUN/Creatinine Ratio 9.09 % 06/21/16 06:06 Glucose 85 mg/dL (75-100) 06/21/16 06:06 POC Glucose 95 (70-105) 06/19/16 10:01 Calcium 8.8 mg/dL (8.4-10.2) 06/21/16 06:06 Magnesium 2.0 mg/dL (1.7-2.3) 06/21/16 06:06 Total Bilirubin 0.6 mg/dL (0.1-1.2) 06/21/16 06:06 Direct Bilirubin < 0.2 mg/dL (0-0.2) 06/21/16 06:06 Indirect Bilirubin 0.4 mg/dL 06/21/16 06:06 AST 12 units/L (5-40) 06/21/16 06:06 ALT 9 units/L (7-56) 06/21/16 06:06 Alkaline Phosphatase 46 units/L (35-129) 06/21/16 06:06 Troponin T < 0.010 ng/mL (0.00-0.029) 06/19/16 09:40 NT-Pro-B Natriuret Pep 23.08 pg/mL (0-450) 06/19/16 09:40 Total Protein 7.3 g/dL (6.3-8.2) 06/21/16 06:06 Albumin 3.9 g/dL (3.9-5) 06/21/16 06:06 Albumin/Globulin Ratio 1.1 % 06/21/16 06:06 Triglycerides 44 mg/dL (2-149) 06/20/16 04:22 Cholesterol 186 mg/dL (50-199) 06/20/16 04:22 LDL Cholesterol Direct 112 mg/dL (50-130) 06/20/16 04:22 HDL Cholesterol 66 mg/dL (40-59) H 06/20/16 04:22 Cholesterol/HDL Ratio 2.81 % 06/20/16 04:22 Urine Opiates Screen Presumptive negative 06/19/16 13:18 Urine Methadone Screen Presumptive negative 06/19/16 13:18 Ur Barbiturates Screen Presumptive negative 06/19/16 13:18 Ur Phencyclidine Scrn Presumptive negative 06/19/16 13:18 Ur Amphetamines Screen Presumptive negative 06/19/16 13:18 U Benzodiazepines Scrn Presumptive negative 06/19/16 13:18 Urine Cocaine Screen Presumptive negative 06/19/16 13:18 U Marijuana (THC) Screen Presumptive negative 06/19/16 13:18 Drugs of Abuse Note Disclamer 06/19/16 13:18 Plasma/Serum Alcohol < 0.01 gm% (0-0.07) 06/19/16 09:40
[2016-06-21] MEDS: LOVENOX SUB-Q SCH (22:00)
[2016-06-22] MEDS: PEPCID PO SCH (09:12)
[2016-06-22] MEDS: NORVASC PO SCH (09:12)
[2016-06-22] MEDS: ECOTRIN PO SCH (09:12)
--- NOTE | 2016-06-22 12:11 | Consultation ---
History of Present Illness - Reason for Consult Consult date: 06/22/16 stroke - History of Present Illness I have reviewed all the imaging studies, ECHO and evaluated the patient rec medical therapy plavix and aspirin statin there is branch stenosis of the right MCA plan to check with radiology patient is making good recovery did NOT see on the echo evidence of clot or defect that would cause the problem Past History Past Medical History: DVT (right leg 4 yrs ago) Past Surgical History: Other (wrist surgery) Social history: single, smoking (smokes daily cigar/black and mild), alcohol abuse (occasionally), full code Family history: hypertension Medications and Allergies Allergies Allergy/AdvReac Type Severity Reaction Status Date / Time No Known Allergies Allergy Verified 06/19/16 10:21 Home Medications Medication Instructions Recorded Confirmed Last Taken Type No Known Home Medications [No 06/19/16 06/19/16 Unknown History Reported Home Medications] Active Meds: Active Medications Acetaminophen (Tylenol) 650 mg PO Q4H PRN PRN Reason: Pain, Mild (1-3) Acetaminophen/Hydrocodone Bitart ([place] 5/325) 1 each PO Q6H PRN PRN Reason: Pain, Moderate (4-6) Last Admin: 06/19/16 21:08 Dose: 1 each Amlodipine Besylate (Norvasc) 5 mg PO QDAY [facility] Last Admin: 06/22/16 09:12 Dose: 5 mg Aspirin (Ecotrin) 325 mg PO QDAY [facility] Last Admin: 06/22/16 09:12 Dose: 325 mg Atorvastatin Calcium (Lipitor) 40 mg PO QHS [facility] Last Admin: 06/21/16 21:59 Dose: 40 mg Bisacodyl (Dulcolax) 10 mg OK QDAY PRN PRN Reason: Constipation Enoxaparin Sodium (Lovenox) 40 mg SUB-Q QDAY@2200 [facility] Last Admin: 06/21/16 22:00 Dose: 40 mg Famotidine (Pepcid) 20 mg PO QDAY [facility] Last Admin: 06/22/16 09:12 Dose: 20 mg Magnesium Hydroxide (Milk Of Magnesia) 30 ml PO Q4H PRN PRN Reason: Constipation Ondansetron HCl (Zofran) 4 mg IV Q8H PRN PRN Reason: nausea or vomiting Sodium Chloride (Sodium Chloride Flush Syringe 10 Ml) 10 ml IV PRN PRN PRN Reason: LINE FLUSH Exam - Constitutional Vitals: Temp Pulse Resp BP Pulse Ox 98.3 F 63 20 141/90 98 06/22/16 09:29 06/22/16 11:53 06/22/16 09:29 06/22/16 09:29 06/22/16 09:29 Results - Labs CBC & Chem 7: 06/21/16 06:06 06/21/16 06:06
[2016-06-22] MEDS ORDERED: ECOTRIN PO SCH (16:29)
--- NOTE | 2016-06-22 16:30 | Progress Note ---
Assessment and Plan Assessment and plan: --Acute ischemic CVA MRI; large area of subacute ischemia in the right MCA distribution no evidence of hemorrhage MRA; focal occlusion or near occluding thrombus in the right M2 segment as outlined --Acute CVA ischemic, status post TPA Closely monitor, aspirin and DVT prophylaxis after 24 hours soft TPA Physical therapy occupational therapy and speech therapy And rehabilitation per protocol --Family history of hypercoagulable state with CVAs, DVTs Check hypercoagulable profile, consult neurology, hematology --echocardiogram CT angiogram of his head and carotid Dopplers reviewed Normal study --Accelerated Hypertension at the time of admission Now well-controlled, continue current antihypertensives And when necessary hydralazine --Dyslipidemia; We'll add lipid-lowering medications and low cholesterol diet --Ongoing tobacco use Smoking cessation counseling done, strongly advised to quit tobacco use, advised us and consequences Advised nicotine patch, I spent 10 minutes counseling the patient smoking cessation --DVT prophylaxis; SCDs, Lovenox after 24 hours post TPA per protocol --Physical therapy, occupational therapy, speech therapy Acute versus subacute rehabilitation if needed History Interval history: Patient seen and evaluated medical records reviewed No new events reported by the nursing staff Neurology evaluation and recommendations noted and appreciated Patient has hypercoagulable state with past history of DVT, significant family history of DVTs and CVA Hypercoagulation panel requested, consult hematology for assistance with management Patient feels better no new complaints Alert awake oriented 3 not in acute distress vital signs reviewed Hospitalist Physical - Constitutional Vitals: Temp Pulse Resp BP Pulse Ox 98.1 F 76 18 150/102 98 06/22/16 13:55 06/22/16 13:55 06/22/16 13:55 06/22/16 13:55 06/22/16 13:55 General appearance: Present: no acute distress, well-nourished - EENT Eyes: Present: PERRL, EOM intact - Neck Neck: Present: supple, normal ROM - Respiratory Respiratory effort: normal Respiratory: bilateral: diminished, negative: rales, rhonchi, wheezing - Cardiovascular Rhythm: regular Heart Sounds: Present: S1 & S2 - Extremities Extremities: no ischemia, pulses intact, pulses symmetrical Peripheral Pulses: within normal limits - Abdominal General gastrointestinal: soft, non-tender, non-distended, normal bowel sounds - Integumentary Integumentary: Present: clear, warm - Psychiatric Psychiatric: appropriate mood/affect, cooperative - Neurologic Neurologic: other (residual weakness) Results - Labs CBC & Chem 7: 06/21/16 06:06 06/21/16 06:06 Labs: Laboratory Last Values WBC 8.9 K/mm3 (4.5-11.0) 06/21/16 06:06 RBC 4.92 M/mm3 (3.65-5.03) 06/21/16 06:06 Hgb 14.6 gm/dl (11.8-15.2) 06/21/16 06:06 Hct 43.3 % (35.5-45.6) 06/21/16 06:06 MCV 88 fl (84-94) 06/21/16 06:06 MCH 30 pg (28-32) 06/21/16 06:06 MCHC 34 % (32-34) 06/21/16 06:06 RDW 14.5 % (13.2-15.2) 06/21/16 06:06 Plt Count 192 K/mm3 (140-440) 06/21/16 06:06 Lymph % (Auto) 37.8 % (13.4-35.0) H 06/21/16 06:06 [place] % (Auto) 9.6 % (0.0-7.3) H 06/21/16 06:06 Eos % (Auto) 1.8 % (0.0-4.3) 06/21/16 06:06 Baso % (Auto) 0.9 % (0.0-1.8) 06/21/16 06:06 Lymph # 3.4 K/mm3 (1.2-5.4) 06/21/16 06:06 [place] # 0.9 K/mm3 (0.0-0.8) H 06/21/16 06:06 Eos # 0.2 K/mm3 (0.0-0.4) 06/21/16 06:06 Baso # 0.1 K/mm3 (0.0-0.1) 06/21/16 06:06 Seg Neutrophils % 49.9 % (40.0-70.0) 06/21/16 06:06 Seg Neutrophils # 4.5 K/mm3 (1.8-7.7) 06/21/16 06:06 PT 12.6 Sec. (12.2-14.9) 06/19/16 09:40 INR 0.95 (0.87-1.13) 06/19/16 09:40 APTT 24.0 Sec. (24.2-36.6) L 06/19/16 09:40 Thrombin Time 15.9 Sec. (15.1-19.6) 06/19/16 09:40 Sodium 137 mmol/L (137-145) 06/21/16 06:06 Potassium 3.8 mmol/L (3.6-5.0) 06/19/16 09:40 Chloride 103.6 mmol/L (98-107) 06/19/16 09:40 Carbon Dioxide 22 mmol/L (22-30) 06/21/16 06:06 Anion Gap 20 mmol/L 06/19/16 09:40 BUN 10 mg/dL (9-20) 06/21/16 06:06 Creatinine 1.1 mg/dL (0.8-1.5) 06/21/16 06:06 Estimated GFR > 60 ml/min 06/21/16 06:06 BUN/Creatinine Ratio 9.09 % 06/21/16 06:06 Glucose 85 mg/dL (75-100) 06/21/16 06:06 POC Glucose 95 (70-105) 06/19/16 10:01 Calcium 8.8 mg/dL (8.4-10.2) 06/21/16 06:06 Magnesium 2.0 mg/dL (1.7-2.3) 06/21/16 06:06 Total Bilirubin 0.6 mg/dL (0.1-1.2) 06/21/16 06:06 Direct Bilirubin < 0.2 mg/dL (0-0.2) 06/21/16 06:06 Indirect Bilirubin 0.4 mg/dL 06/21/16 06:06 AST 12 units/L (5-40) 06/21/16 06:06 ALT 9 units/L (7-56) 06/21/16 06:06 Alkaline Phosphatase 46 units/L (35-129) 06/21/16 06:06 Troponin T < 0.010 ng/mL (0.00-0.029) 06/19/16 09:40 NT-Pro-B Natriuret Pep 23.08 pg/mL (0-450) 06/19/16 09:40 Total Protein 7.3 g/dL (6.3-8.2) 06/21/16 06:06 Albumin 3.9 g/dL (3.9-5) 06/21/16 06:06 Albumin/Globulin Ratio 1.1 % 06/21/16 06:06 Triglycerides 44 mg/dL (2-149) 06/20/16 04:22 Cholesterol 186 mg/dL (50-199) 06/20/16 04:22 LDL Cholesterol Direct 112 mg/dL (50-130) 06/20/16 04:22 HDL Cholesterol 66 mg/dL (40-59) H 06/20/16 04:22 Cholesterol/HDL Ratio 2.81 % 06/20/16 04:22 Urine Opiates Screen Presumptive negative 06/19/16 13:18 Urine Methadone Screen Presumptive negative 06/19/16 13:18 Ur Barbiturates Screen Presumptive negative 06/19/16 13:18 Ur Phencyclidine Scrn Presumptive negative 06/19/16 13:18 Ur Amphetamines Screen Presumptive negative 06/19/16 13:18 U Benzodiazepines Scrn Presumptive negative 06/19/16 13:18 Urine Cocaine Screen Presumptive negative 06/19/16 13:18 U Marijuana (THC) Screen Presumptive negative 06/19/16 13:18 Drugs of Abuse Note Disclamer 06/19/16 13:18 Plasma/Serum Alcohol < 0.01 gm% (0-0.07) 06/19/16 09:40
[2016-06-22] MEDS: LOVENOX SUB-Q SCH (23:01)
--- NOTE | 2016-06-22 23:20 | Progress Note ---
Assessment and Plan Patient resting.No complaint of chest pain or shortness of breath. Blood pressure still running high.O2 satuaration 96% on room air. - Patient Problems (1) Hypertensive emergency Current Visit: Yes Status: Acute Plan to address problem: Management as per primary care. (2) TIA (transient ischemic attack) Current Visit: Yes Status: Acute Plan to address problem: Management as per primary care and neurology. Subjective Date of service: 06/22/16 Principal diagnosis: CVA; Hypertensive Urgency Interval history: Patient resting.No complaint of chest pain or shortness of breath. Blood pressure still running high.O2 satuaration 96% on room air. Objective Vital Signs - 12hr 06/22/16 06/22/16 06/22/16 11:53 13:55 18:22 Temperature 98.1 F 98.5 F Pulse Rate 63 Pulse Rate [ 76 71 Left] Respiratory 18 18 Rate Blood Pressure 150/102 135/92 [Right Arm] O2 Sat by Pulse 98 98 Oximetry 06/22/16 20:00 Temperature 97.6 F Pulse Rate Pulse Rate [ 64 Left] Respiratory 20 Rate Blood Pressure 157/101 [Right Arm] O2 Sat by Pulse 96 Oximetry Constitutional: no acute distress Eyes: non-icteric ENT: oropharynx moist Neck: supple, no lymphadenopathy Effort: normal Ascultation: Bilateral: clear Cardiovascular: regular rate and rhythm Gastrointestinal: normoactive bowel sounds, soft, non-tender, non-distended Integumentary: normal Extremities: no cyanosis, no edema, pulses normal, no ischemia or petechiae Neurologic: normal mental status, non-focal exam (grossly), pupils equal and round, motor strength normal and, other (? slight left facial droop) Psychiatric: mood appropriate, affect normal CBC and BMP: 06/21/16 06:06 06/21/16 06:06 ABG, PT/INR, D-dimer: PT/INR, D-dimer PT 12.6 Sec. (12.2-14.9) 06/19/16 09:40 INR 0.95 (0.87-1.13) 06/19/16 09:40 Abnormal lab findings: Abnormal Labs 06/20/16 06/21/16 04:22 06:06 Lymph % (Auto) 37.8 H [place] % (Auto) 9.6 H [place] # 0.9 H HDL Cholesterol 66 H
[2016-06-23 09:40] VITALS: BP 154/96
[2016-06-23] MEDS ORDERED: HALFPRIN EC PO SCH (10:00)
[2016-06-23] MEDS ORDERED: PLAVIX PO SCH (10:00)
[2016-06-23] MEDS: NORVASC PO SCH (10:00)
[2016-06-23] MEDS: PEPCID PO SCH (10:00)
--- NOTE | 2016-06-23 10:27 | Discharge Summary ---
Providers - Providers Date of Admission: 06/19/16 11:26 Date of discharge: 06/23/16 Attending physician: KELY MILNER 06/19/16 18:54 Consult to Physician [CONS] Urgent Consulting Provider: SAL CARTWRIGHT Reason For Exam: ICU admission, post-TPA Place consult to:: Dr Mchugh Notified:: horacio 06/21/16 19:18 Consult to Physician [CONS] Routine Consulting Provider: CONSUELO DANIELS Reason For Exam: acute CVA Place consult to:: Dr. Daniels Notified:: Gretchen Phone number called:: Was contact made?: Yes If yes, spoke with:: Niesha-answering service Time called:: 08:21 06/22/16 07:11 Consult to Physician [CONS] Routine Consulting Provider: JANENE BERGERON Reason For Exam: hypercoag state/CVA/h/o DVT Place consult to:: Dr. Bergeron Notified:: Gretchen BIRD Phone number called:: Was contact made?: Yes If yes, spoke with:: Jing-answering service Time called:: 08:26 Primary care physician: ODD SHOE EXAMINER Hospitalization Condition: Stable Disposition: DISCHARGED TO HOME OR SELFCARE Core Measure Documentation - Palliative Care Palliative Care/ Comfort Measures: Not Applicable - Core Measures Any of the following diagnoses?: stroke - Stroke Discharge Requirements Statin for LDL = or >70 mg/dl on DC: Yes Anticoag for atrial fib/atrial flutter: Not Applicable (no afib/flutter) Antithrombotic for ischemic stroke: Yes Exam - Constitutional Vitals: Temp Pulse Resp BP Pulse Ox 98.1 F 59 L 18 154/96 98 06/23/16 09:39 06/23/16 10:00 06/23/16 09:39 06/23/16 09:39 06/23/16 09:39 General appearance: Present: no acute distress, well-nourished - EENT Eyes: Present: PERRL, EOM intact - Neck Neck: Present: supple, normal ROM - Respiratory Respiratory effort: normal Respiratory: negative: rales, rhonchi, wheezing - Cardiovascular Rhythm: regular Heart Sounds: Present: S1 & S2 - Extremities Extremities: no ischemia, pulses intact, pulses symmetrical Peripheral Pulses: within normal limits - Abdominal General gastrointestinal: Present: soft, non-tender, non-distended, normal bowel sounds - Integumentary Integumentary: Present: clear, warm - Musculoskeletal Musculoskeletal: strength equal bilaterally - Psychiatric Psychiatric: appropriate mood/affect, cooperative - Neurologic Neurologic: moves all extremities Plan Activity: no restrictions Diet: low cholesterol, low salt Special Instructions: smoking cessation Additional Instructions: Patient advised to see assistant public defender for hypercoagulation workup given significant family history of CVA and personal h/ o DVT in the past. Smoking cessation counselling done adv to quit tobacco use Follow up with: PRIMARY CARE, [Primary Care Provider] - 7 Days CONSUELO DANIELS MD [Staff Physician] - 7 Days BOB JOSEPH MD [Staff Physician] - 7 Days Prescriptions: Aspirin EC [Aspirin Enteric Coated TAB] 81 mg PO QDAY #30 tablet AtorvaSTATin [Lipitor] 40 mg PO QHS #30 tablet Clopidogrel [Plavix] 75 mg PO QDAY #30 tablet Famotidine [Pepcid] 20 mg PO QDAY #14 tablet amLODIPine [Norvasc] 5 mg PO QDAY #30 tablet
--- NOTE | 2016-06-23 13:15 | Consultation ---
HISTORY OF PRESENT ILLNESS: This is a 31-year-old black male that presents to the [facility] with a major complaint of while working out he had the abrupt onset of left-sided weakness and this occurred following the incident where he became acutely ill. He, in the interval, has had some return of strength of his left arm and left leg. He has not had symptoms such as this previously. He has denied any prior periods of confusion and disorientation. He has noted MRI scan of the brain, a focal occlusion or near occluding thrombus in the right M1 section of the right MCA, but he was patent in the right YANELI, left YANELI, and right and left MCA. There is a focal occlusion within the branches of the right MCA in the right M2 section. He has had an improvement in strength since the onset of this disorder. He does not currently complaining of a headache and his numbness and weakness of improved remarkably. He denies any current headache. He has not had symptoms such as this in the past. PHYSICAL EXAMINATION: GENERAL: He has a very clear cut left facial weakness on the left side and he does not have any drift of his extremities. He can move his legs well, elevate gravity well. His ocular movements are full. NEUROLOGIC: Cranial nerves 2-12 are otherwise intact. IMPRESSION: This patient obviously has had an ischemic stroke related to a branch occlusion of the middle coronary artery. 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 JOB# [id number] MACY/VICTORINO
--- NOTE | 2016-06-23 14:34 | Consultation ---
REQUESTING PHYSICIAN: Destiny Crockett M.D. REASON FOR CONSULTATION: Stenosis of the right MCA, status post TPA with complete recovery. IMPRESSION: 1. 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 2. History of a right lower extremity deep venous thrombosis 4 years ago, questionable compliance with anticoagulation based on history, no medical followup or hypocoagulable workup per patient. 3. Strong family history for thromboembolic events. 4. Hypertensive emergency. RECOMMENDATIONS: 1. Medical therapy with Plavix and aspirin and statin per Neurology. 2. The patient and mother states he has on appointment already on Friday with [facility] member service specialist, Dr. Garcia, who will follow the patient and do the hypocoagulable workup. 3. Hematology followup per the patient's new member service specialist. 4. Smoking cessation discussed. HISTORY OF PRESENT ILLNESS: The patient is a 31-year-old Kaitlyn male with past medical history significant for deep venous thrombosis in his leg 4 years ago. He states he was diagnosed ____ and followed by Dr. Alvarado. He states he was treated with Coumadin for approximately 3 months. He did not have any further followup after that. He has a strong family history of thromboembolic events. Apparently, his mother was diagnosed in 2008 with PE and DVT. His father of a CEA. The patient was brought in by paramedics with left-sided weakness, while exercising in the gym. By the time he presented to the Emergency Room, his left facial weakness had resolved. He did have hypertensive urgency with blood pressure 160/110. He was treated for his hypertensive urgency and diagnosed with a TIA. However, the patient later that day developed recurrent acute symptoms of left-sided weakness, left facial droop, homonymous hemianopsia, and headache. The patient appears to be having an acute thrombotic event. Stat CT angiogram of the head and neck was ordered, but due to the acute symptoms, the neurologist reviewed the scan and recommended TPA, which was given to the patient. He got recovered and complete resolution of his symptoms. Head MRA, focal occlusion or near occluding thrombus in the right M2 segment as outlined. Brain MRI, larger area of subacute ischemia of the right MCA distribution. No evidence of hemorrhage. The patient currently denies headaches, blurry vision, nausea, vomiting. The patient denies any focal numbness or weakness. He denies any bruising or bleeding. ALLERGIES: No known drug allergies. PAST MEDICAL HISTORY: As above. FAMILY HISTORY: Mother diagnosed with PE and DVT in 2008. The patient's father of a CVA. The patient's brother 35 years old, unknown cause, he was obese. SOCIAL HISTORY: The patient is single, lives with his mother. He has no children. He has smoked cigars for years. He denies any excessive alcohol usage as occasional. REVIEW OF SYSTEMS: A 14-point review of system was obtained, positive pertinent negatives are in the history of present illness. PHYSICAL EXAMINATION: GENERAL: He is a well-developed, well-nourished male lying in bed in no acute distress. Performance status is 0. VITAL SIGNS: Temperature is 98.8, pulse 81, respirations 20, blood pressure 158/95. HEENT: Normocephalic, atraumatic. Pupils equal, round. Pharynx clear. NECK: Supple. LUNGS: Clear to auscultation bilaterally. CARDIOVASCULAR: S1, S2. No murmurs appreciated. ABDOMEN: Positive bowel sounds, soft, nontender, nondistended, no hepatosplenomegaly. EXTREMITIES: No cyanosis, no clubbing, no edema. NEUROLOGIC: The patient is awake, oriented. Cranial nerves II through XII are grossly intact. He moved all extremities. His mood was appropriate. His judgment was intact. MUSCULOSKELETAL: No evidence of calf swelling similar to lower extremities, LABORATORY DATA: WBC 8.9, hemoglobin 14, platelet count ____, normal differential. Creatinine 1.1. Scans per the history of present illness and echo, which was negative for thrombus. JOB# [id number] PH/NTS
--- NOTE | 2016-06-24 08:13 | Vascular Lab Report ---
CAROTID DUPLEX STUDY: RIGHT PSVEDV CCA PROX:[id number] CCA DIST: 8925 ICA PROX: 6721 ICA MID: 6030 ICA DIST: 6630 ECA: 4912 VERT: 38 16 LEFT PSVEDV CCA PROX:[id number] CCA DIST:58145 ICA PROX: 7327 ICA MID: 7231 ICA DIST: 7024 ECA: 24152 VERT: 51` 16 REASON FOR EXAM: Stroke. COMMENTS ON THE RIGHT: Doppler frequency analysis is consistent with 16 to 49 percent diameter reduction of the internal carotid artery. Minimal amount of plaque is seen. The common carotid artery is patent. The external carotid artery is patent. The vertebral artery has antegrade flow. COMMENTS ON THE LEFT: Doppler frequency analysis is consistent with 16 to 49 percent diameter reduction of the internal carotid artery. Minimal amount of plaque is seen. The common carotid artery is patent. The external carotid artery is patent. The vertebral artery has antegrade flow. IMPRESSION: Less than 50% diameter reduction in the internal carotid arteries bilaterally. Consider repeat carotid artery duplex in 12 months.
== END 2016-06-23 15:25 | disposition home or self-care (01) | DRG 62 ==
LOC: ED 09:43 → 4A 11:26 → CC1 18:27 → 4A 06-20 22:11
PROVIDERS: ADMIT Internal Medicine; ATTEND Internal Medicine
DX: I63.9 Cerebral infarction, unspecified (principal); I16.1 Hypertensive emergency; I16.0 Hypertensive urgency; F17.210 Nicotine dependence, cigarettes, uncomplicated; R29.703 NIHSS score 3; F10.10 Alcohol abuse, uncomplicated; E78.5 Hyperlipidemia, unspecified; I10 Essential (primary) hypertension; I66.01 Occlusion and stenosis of right middle cerebral artery; Z71.6 Tobacco abuse counseling; Z82.49 Family history of ischemic heart disease and other diseases of the circulatory system; Z83.2 Family history of diseases of the blood and blood-forming organs and certain disorders involving the immune mechanism; Z84.89 Family history of other specified conditions; Z92.82 Status post administration of tPA (rtPA) in a different facility within the last 24 hours prior to admission to current facility; Z98.890 Other specified postprocedural states; Z86.718 Personal history of other venous thrombosis and embolism
CPT/HCPCS: 36415; 70450; 70496; 70498; 70544; 70551; 80048; 80061; 80074; 80307; 80320; 82962; 83516; 83735; 83880; 84484; 85025; 85301; 85305; 85307; 85610; 85613; 85670; 85730; 86147; 93005; 93010; 93306; 93880; 96374; 96375; 96376; 99406; A9270-GY; G0480; J0360; J1650; J2997; Q9967